=== PATIENT | female | born 1935 | race Caucasian/White ===

== ENCOUNTER 2016-10-23 11:11 | Emergency (ER) | payer MEDICARE ==
[~2016-10-23] VITALS: Ht 157.5 cm; Wt 122.7 kg
[~2016-10-23 11:11] MED LIST: AMLO10TA5 PO; ASP81TEC PO; ATEN25TA7 PO; CALCIUM 500+VI1 EACH PO; DOCU-42 PO; KRIL500C PO; LOVA10TA PO; MET15 PO; METAMUCIL PO; MULT-946 PO; SPIRONALACTONE PO; TYL325 PO
[2016-10-23 11:18] VITALS: BP 136/66; PULSE 100; RESP 40; O2SAT 91
--- NOTE | 2016-10-23 11:50 | ED.REPORT ---
HPI-Dyspnea / Wheezing Date of Service Oct 23, 2016 ED Provider: Kj Loyd MD Patient is an 81 year old female with a history of hypertension, bronchitis, and sleep apnea who presents to the ED complaining of shortness of breath that has progressively gotten worse for the past 6 days. Patient reports having a productive cough with green sputum, rhinorrhea, congestion and a sore throat when she wakes up in the morning. She denies nausea, vomiting, chest pain, and fever. She has had a nuclear stress test in the past but it showed no abnormal results. The patient was scheduled to have an appointment with her primary care physician today but was referred to Urgent Care, who then referred her to the ED. Nursing Notes Stated Complaint: LOW OXYGEN Chief Complaint: Respiratory Complaints Nursing Notes Reviewed: Yes Allergies: Coded Allergies: atorvastatin calcium (Verified Allergy, Severe, MUSCLE ACHING/PAIN, ) Scheduled ([Spironalactone]) 25 MG PO AM ([metamucil 0.52 cap]) 2 CAP PO DAILY Acetaminphen-Expunged Drug, Do Not Renew! (Acetaminphen-Expunged Drug, Do Not Renew!) 325 Mg Tablet 325 MG PO Q4HP AmLODIPine-Expunged Drug, Do Not Renew! (AmLODIPine-Expunged Drug, Do Not Renew! ) 10 Mg Tablet 10 MG PO AM Aspirin-Expunged Drug, Do Not Renew! (Aspirin EC-Expunged Drug, Do Not Renew!) 81 Mg Tablet 81 MG PO DAILY INSTRUCTED TO STOP Atenolol-Expunged Drug, Do Not Renew! (Atenolol-Expunged Drug, Do Not Renew!) 25 Mg Tablet 25 MG PO AM Azithromycin (Zithromax (Z-Rei)) 250 Mg Tablet 250 MG PO DIRECTED Take two tablets by mouth on day 1, then take one tablet daily on days 2 through 5. Juan Daniel Carb/Vitamin D3-Expunged, Do Not Renew! (CALCIUM 500/VIT D 400-Expunged, Do Not Renew!) 1 Each Tablet 1 EACH PO DAILY Krill Oil (Krill Oil) 500 Mg Capsule 300 MG PO DAILY INSTRUCTED TO STOP Lovastatin-Expunged Drug, Do Not Renew! (Lovastatin-Expunged Drug, Do Not Renew! ) 10 Mg Tablet 10 MG PO HS MULTIVIT, IRON, MIN NO. 8, FA-Expunged Drug, (APPPFHXGBLR-I-Pyugcyue Drug, Do Not Renew!) 1 Each Tablet 1 EACH PO DAILY Prednisone (PredniSONE) 20 Mg Tablet 40 MG PO DAILY Psyllium-Expunged Drug, Choose New Med! (Metamucil Packet-Expunged Drug, Choose New) 1 Ea Pack 1 PKT PO BID Scheduled PRN Docusate Sod-Expunged Drug, Do Not Renew! (Docusate Sod-Expunged Drug, Do Not Renew!) 100 Mg Capsule 200 MG PO HS PRN PRN General Time Seen by MD: 11:49 Chief Complaint Shortness of breath Hx Obtained From: Patient Arrived By: Walk-in Sudden in Onset?: No Onset Occurred: 1 week ago Symptom Duration: Since onset Recent Healthcare: No recent hospitalization, Recent doctor visit Similar Sx Previous: Yes Past Medical History Past Medical History DVT lower extremities Bronchitis Sleep apnea Reports: Hyperlipidemia, Hypertension Past Surgical History bilateral knee scopes ovarian cystectomy left TKA joint replacement Reports: Appendectomy, Cholecystectomy, Hysterectomy Smoking History Former Smoker Social History Other Social History: Good social support Ambulatory Status Independent Review of Systems Constitutional: Denies: Fever Ears / Nose / Throat: Reports: Nasal congestion, Sore throat Respiratory: Reports: Prod cough, green, Shortness of breath Cardiovascular: Denies: Chest pain Allergy / Immune: Reports: Rhinorrhea Complete sys rev & neg: except as marked. GI: Denies: Nausea, Vomiting Physical Exam Initial Vital Signs Vital Signs (First) Date Time Temp Pulse Resp B/P Pulse Ox O2 Delivery O2 Flow Rate FiO2 10/23/16 11:18 36.7 100 40 136/66 91 Room Air 10/23/16 12:08 4 Initial VS: Reviewed General/Constitutional: Awake, Alert Neck: Supple, Full range of motion, Non-tender Respiratory / Chest: Atraumatic, Breath sounds NL, Breath sounds = bilat, No respiratory distress Wheezing / Retractions: Positive: Wheeze insp/exp diffuse Cardiovascular: Heart rate NL, Regular rhythm, Heart sounds NL, No murmurs ENT: Airway patent, Mucous membranes moist Abdomen: Soft, Non-tender Lower Extremity / Pelvis / MS: Full range of motion, No deformity, Neurologic intact, Vascular intact +1 bilateral lower extremity edema Skin: Atraumatic, Color NL, No rash, Warm, Dry Neurologic: Oriented X3, Speech NL, No motor deficits, No sensory deficits Head / Eyes: Normocephalic, PERRL, EOMI Psychiatric: Affect NL, Mood NL Interpretation & Diagnostics Lab Results Interpretation Result Diagram: 10/23/16 1150 10/23/16 1150 Test 10/23/16 11:50 White Blood Count 14.8th/mm3 (3.8-10.1) Red Blood Count 4.85mil/mm3 (3.90-5.20) Hemoglobin 14.0g/dL (12.0-15.6) Hematocrit 43.2% (35.0-46.0) Mean Corpuscular Volume 89.1fL (81-100) Mean Corpuscular Hemoglobin 28.9pg (27.0-35.0) Mean Corpuscular Hemoglobin Concent 32.4% (32.0-37.0) Red Cell Distribution Width 14.1% (12.3-15.4) Platelet Count 317bil/L (150-400) Neutrophils (%) (Auto) 86.6% (40-74) Lymphocytes (%) (Auto) 7.7% (14-46) Monocytes (%) (Auto) 4.9% (4-12) Eosinophils (%) (Auto) 0.1% (0-5) Basophils (%) (Auto) 0.3% (0-3) Prothrombin Time 11.6sec (8.1-12.5) Prothromb Time International Ratio 1.08ratio Sodium Level 130mEq/L (134-144) Potassium Level 3.8mEq/L (3.5-5.2) Chloride Level 89mEq/L (97-108) Carbon Dioxide Level 23mmol/L (18-29) Blood Urea Nitrogen 19mg/dL (8-27) Creatinine 1.06mg/dL (0.57-1.00) Estimat Glomerular Filtration Rate 71mL/min (>59) Glucose Level 163mg/dL (60-99) Calcium Level 8.9mg/dL (8.5-10.1) Total Bilirubin 0.8mg/dL (0.0-1.2) Aspartate Amino Transf (AST/SGOT) 39U/L (0-50) Alanine Aminotransferase (ALT/SGPT) 20U/L (0-32) Alkaline Phosphatase 71U/L (25-165) Troponin T 0.010ug/L (0.0-0.011) Pro-B-Type Natriuretic Peptide 287.7pg/mL (0-738) Total Protein 7.8g/dL (6.4-8.4) Albumin 3.7g/dL (3.4-5.0) Hold Murphy Top Tube Received (Received) ECG Interpretation ECG Interpretation: No ST changes Time: 12:11 Interpreted by: ED physician Normal ECG Interpretation: Normal rate (99), Normal sinus rhythm X-Ray Chest Interpretation Chest Xray Interpretation: IMPRESSION: 1. No definite acute cardiopulmonary disease with evaluation of the left base limited due to lordotic projection. Dictated by: Ab Myers M.D. on 10/23/2016 at 13:14 Approved by: Ab Myers M.D. on 10/23/2016 at 13:16 View: Portable, 1 view Interpretation / Wet Read by: Interpret - Radiologist Re-Eval/Medical Decision Med Decision/Clinical Course 81-year-old female history of hypertension, bronchitis, sleep apnea presenting with cough and congestion. On arrival she was satting in the high 80s low 90s. She was given 2 albuterol nebulizers and her oxygen was in the mid 90s. She felt much better. She is given 1 dose IV steroids. No pneumonia. Labs are stable. Patient requested to go home. Gave prescription for steroid burst, albuterol inhaler, azithromycin for bronchitis. Return precautions given. Source of Hx: Old records Re-Evaluation/Progress #1: Time of Eval: 13:39 Re-Evaluation/Progress Note: Rechecked patient. Discussed radiology results and diagnosis. Patient's oxygen remains low. Updated patient on the plan of care. Re-Evaluation/Progress #2: Time of Eval: 14:20 Re-Evaluation/Progress Note: Rechecked patient. Discussed plan for treatment and discharge. The patient understands and agrees to the plan for discharge. All questions were addressed. Counseled Regarding: Diagnosis, Lab results, Need for follow-up, When/why to return to ED Discharge & Departure Impression: Primary Impression: Acute bronchitis Disposition: Home Discharge Condition All VS Reviewed: Yes Condition: Stable Patient Instructions: Acute Bronchitis (ED) Additional Instructions: Take Azithromycin and Prednisone as prescribed. Follow up with your primary care physician this week. Please return to the emergency department if you develop any new or worsening symptoms including swelling of the legs, shortness of breath, chest pain, nausea, or profuse sweating. Referrals: Garth Call MD (PCP) [facility] Attestation Portions of this note were transcribed by Elke Mcneil and Alan Davey. I, Dr. Loyd personally performed the history, physical exam and medical decision-making; I reviewed and confirmed the accuracy of the information in the transcribed note. Signed by: Elke Mcneil and Ramiro Quintero, and 1421. copies to: Garth Call MD, Ben M MD Oct 23, 2016 11:50 Ana Mcneil Oct 23, 2016 11:59 ALAN DAVEY Oct 23, 2016 12:22
[2016-10-23] MEDS ORDERED: Albuterol-Ipratropium 3 mL Inhalation Solution NEB ONE ×2 (12:00→13:45)
[2016-10-23] MEDS ORDERED: MethylprednisoLONE Sodium Succinate 62.5 mg/mL 2 mL Inj IVPUSH ONE (12:00)
[2016-10-23 12:08] VITALS: PULSE 96; RESP 26; O2SAT 94
[2016-10-23 12:21] VITALS: BP 144/72; PULSE 102; RESP 20; O2SAT 92
[2016-10-23 12:21] LABS: BASOPHILS % (AUTO) 0.3 % (0-3); EOSINOPHILS % (AUTO) 0.1 % (0-5); MONOCYTES % (AUTO) 4.9 % (4-12); Mean Corpuscular Hemoglobin 28.9 pg (27.0-35.0); Mean Corpuscular Volume 89.1 fL (81-100); NEUTROPHILS % (AUTO) 86.6 % (40-74); Platelet Count 317 bil/L (150-400)
[2016-10-23 12:35] LABS: INR 1.08 ratio
[2016-10-23 12:53] LABS: TROPONIN T 0.01 ug/L (0.0-0.011)
--- NOTE | 2016-10-23 13:17 | DRSVH ---
PROCEDURE: X-RAY CHEST ONE VIEW, PORTABLE ([id number]) INDICATIONS: dyspnea TECHNIQUE: One view of the chest was acquired. COMPARISON: None. FINDINGS: Surgical changes and devices: None. Lungs and pleura: Evaluation limited due to lordotic projection. The lungs are grossly clear, with evaluation limited at the left lung base. No definite pleural effusions or pneumothorax. Mediastinum: Mediastinal contours appear normal. Heart size is normal. Bones and chest wall: No suspicious bony lesions. Overlying soft tissues appear unremarkable. IMPRESSION: 1. No definite acute cardiopulmonary disease with evaluation of the left base limited due to lordoti c projection. Dictated by: Ab Myers M.D. on 10/23/2016 at 13:14 Approved by: Ab Myers M.D. on 10/23/2016 at 13:16
[2016-10-23 13:51] VITALS: PULSE 97; RESP 20; O2SAT 91
[2016-10-23] MEDS ORDERED: _Albuterol-HFA 60 Puff Inhaler INHALATION PRN (14:20)
[2016-10-23] MEDS ORDERED: AZIT250T4 PO (14:22)
[2016-10-23] MEDS ORDERED: PRE20 PO (14:22)
[2016-10-23] MEDS ORDERED: Albuterol HFA 60 Puff 8 Gm Inhaler INHALATION ONE (14:26)
[2016-10-23 14:47] VITALS: BP 143/50; PULSE 113; RESP 24; O2SAT 92
[2016-10-23 15:00] VITALS: BP 143/50; PULSE 113; RESP 24; O2SAT 92
== END 2016-10-23 14:24 | disposition home or self-care (01) ==
LOC: SED 11:11
DX: J20.9 Acute bronchitis, unspecified (principal); I10 Essential (primary) hypertension; E78.5 Hyperlipidemia, unspecified; Z87.891 Personal history of nicotine dependence; Z88.8 Allergy status to other drugs, medicaments and biological substances
CPT/HCPCS: 71010; 80053; 83880; 84484; 85025; 85610; 93005; 94640; 94664; 96374; 99285; J2930; J7620